=== PATIENT | male | born 1975 | race Caucasian/White ===

== ENCOUNTER 2019-11-25 17:45 | Emergency (ER) | payer MEDICARE, MEDICAID ==
[~2019-11-25] VITALS: Ht 188 cm; Wt 136.4 kg
[2019-11-25 18:10] VITALS: Ht 188 cm; Wt 136.4 kg
[2019-11-25] MEDS ORDERED: SOMA250 MG PO (18:35)
[2019-11-25] MEDS ORDERED: STERAPRED DS 1010 MG PO (18:35)
[2019-11-25 19:25] VITALS: BP 149/95
== END 2019-11-25 19:26 | disposition home or self-care (01) ==
LOC: D.ER 17:45
DX: S39.012A Strain of muscle, fascia and tendon of lower back, initial encounter (principal); G89.29 Other chronic pain